=== PATIENT | male | born 1945 | race Caucasian/White ===

== ENCOUNTER 2017-01-22 11:06 | Inpatient (IN) | payer OTHER ==
[~2017-01-22] VITALS: Ht 172.7 cm; Wt 97.3 kg
--- NOTE | ~2017-01-22 | CN ---
Consultation Report [facility] [address] [place] [place]. [address] NAME: MAYLIN MIRAMONTES : [birth year] STATUS : ADM Ally PAT#: [id number] AGE: 71 ADM/REG DATE : 01/22/17 MR#: [id number] REPORT SERV DATE: 01/23/17 DICTATED BY: MARY CENTENO DATE: 01/23/17 REPORT STATUS : Draft TRANSCRIBED BY: MODL DATE: 01/23/17 GI CONSULTATION DATE OF CONSULTATION: 01/23/2017 REASON FOR CONSULTATION: Evaluation and management of lower GI bleeding. HISTORY OF PRESENT ILLNESS: Mr. Miramontes is a pleasant 71-year-old male patient, whom we have been asked to see on GI unattached call to evaluate for lower GI bleeding. The patient tells me that he has been having maroon to burgundy colored blood per rectum for approximately two weeks. He states that over the last few days, it has picked up in amount. He states that he had an isolated incident of dizziness, but no syncope. He has had no chest pain. No shortness of breath. He denies any associated abdominal pain. He has not seen any black stools. He denies nausea, vomiting, or melena. He states that he has had increased gas and distention over the last few days. He denies ever having a colonoscopy. He has no family history of colon cancer or colon polyps. He does not take any routine NSAID medications other than a daily baby aspirin. The patient was admitted to the Hospitalist Service, and he did receive GoLYTELY bowel prep overnight. I did discuss with Dr. Grissom, ER physician yesterday via telephone; however, at that point in time, Dr. Grissom was unsure if the patient would agree for admission. I have discussed with the patient and his the risks, the benefits, alternatives, complications of colonoscopy to include, but not limited to risk of bleeding, perforation, infection, reaction to medication, as well as cardiac and pulmonary side effects. He is agreeable to proceed. His main question to me is "cannot be discharged after the colonoscopy." I did discuss with him that it would depend upon findings of colonoscopy and treatment of any findings. PAST MEDICAL HISTORY: Positive for obesity and hypertension. PAST SURGICAL HISTORY: He denies any surgeries stating he has never had anesthesia. FAMILY HISTORY: Noncontributory from a GI standpoint. SOCIAL HISTORY: He is . He lives independently. Denies any alcohol, tobacco, or illicits. ALLERGIES: NO KNOWN ALLERGIES. HOME MEDICATIONS: Aspirin, Proventil, Bystolic, saw palmetto, garlic, and vitamin B12. REVIEW OF SYSTEMS: A 10-point review of systems has been obtained. Pertinent positives are addressed in the history of present illness. PHYSICAL EXAMINATION: Consultation Report [address] [place]. [address] NAME: MAYLIN MIRAMONTES : 43 STATUS : ADM Ally PAT#: [id number] AGE: 71 ADM/REG DATE : 01/22/17 MR#: [id number] REPORT SERV DATE: 01/23/17 DICTATED BY: MARY CENTENO DATE: 01/23/17 REPORT STATUS : Draft TRANSCRIBED BY: JONNY DATE: 01/23/17 VITAL SIGNS: Temperature is 98.3, pulse 70, respirations 16, and blood pressure 120/57. NEUROLOGIC: Reveals an alert male, resting in bed. No focal deficits. GENERAL: Cooperative in no apparent distress. Awake, alert, and oriented x3. HEAD, EARS, EYES, NOSE, AND THROAT: Anicteric. Pupils are equal, round, and reactive to light and accommodation. Normocephalic and atraumatic. NECK: Supple. No JVD. No palpable nodes. LUNGS: Clear anteriorly. Normal respiratory effort exhibited. Equal expansion. CARDIOVASCULAR SYSTEM: Regular rate and rhythm. ABDOMEN: Soft, obese, nontender, and nondistended. No rebound or guarding elicited on exam. No organomegaly appreciated. EXTREMITIES: No edema. Normal distal pulses. SKIN: Warm, dry, and intact. PERTINENT LABORATORY DATA: Sodium 145, potassium 3.9, BUN is 9, and creatinine 0.97. White blood cell count 6.7, hemoglobin 9.4, and hematocrit 28.8. Admission hemoglobin 11.1, with a hematocrit of 34.4. Albumin is 3.4, total bilirubin 0.5, alkaline phosphatase 54, ALT 21, and AST 19. No imaging was obtained. ASSESSMENT: 1. Lower gastrointestinal bleed/painless, question if this is diverticular bleed. Must rule out neoplasm as the patient has never had a colonoscopy versus hemorrhoidal. 2. Anemia of acute blood loss. Stable at present requiring no transfusion. 3. History of hypertension, on medication. PLAN: The patient has been prepped and will undergo colonoscopy today with further recommendations following endoscopy. MICHELET/JONNY Cinebar GIORGIO Rhodes / [id number] CC: MD Oskar Cerda M.D.
--- NOTE | ~2017-01-22 | EGD ---
EGD REPORT [facility] [address] [place]. [address] NAME: MAYLIN MIRAMONTES : 43 STATUS : ADM Ally PAT#: [id number] AGE: 71 ADM/REG DATE : 01/22/17 MR#: [id number] REPORT SERV DATE: 01/23/17 DICTATED BY: LEON NAJERA DATE: 01/23/17 REPORT STATUS : Draft [facility]ANSCRIBED [facility]: [facility] DATE: 01/23/17 Endoscopy Center Patient Name: Maylin Miramontes Date of : 1945 Attending MD: LEON NAJERA MD Procedure Date No Time: 01/23/2017 Procedure: Colonoscopy Indications: Rectal bleeding Referring MD: MK SHORT Medicines: Monitored Anesthesia Care Complications: No immediate complications. Estimated blood loss: Minimal. Procedure: Pre-Anesthesia Assessment: - ASA Grade Assessment: II - A patient with mild systemic disease. After I obtained informed consent, the scope was passed under direct vision. Throughout the procedure, the patient's blood pressure, pulse, and oxygen saturations were monitored continuously. The CF [id number] was introduced through the anus and advanced to the cecum, identified by appendiceal orifice and ileocecal valve. The colonoscopy was performed without difficulty. The patient tolerated the procedure well. The quality of the bowel preparation was good. Findings: The perianal and digital rectal examinations were normal. Pertinent negatives include no palpable rectal lesions. A frond-like/villous, ulcerated non-obstructing large mass was found in the sigmoid colon and at 20 cm proximal to the anus. The mass was non-circumferential. The mass measured four cm in length. Oozing was present. Biopsies were taken with a cold forceps for histology. Area was successfully injected with 5 mL Spot (carbon black) for tattooing. Estimated blood loss was minimal. A multi-lobulated polyp was found in the ascending colon. The polyp was 15 mm in size. The polyp was removed with a saline injection-lift technique using a hot snare. Resection and retrieval were complete. Estimated blood loss was minimal. The exam was otherwise without abnormality on direct and retroflexion views. Impression: - Likely malignant tumor in the sigmoid colon and at 20 cm proximal to the anus. Biopsied. Injected/Tattooed. - One 15 mm polyp in the ascending colon. Resected and retrieved. EGD REPORT [place] [id number] [facility] [place]. [address] NAME: MAYLIN MIRAMONTES : [birth year] STATUS : ADM Ally PAT#: [id number] AGE: 71 ADM/REG DATE : 01/22/17 MR#: [id number] REPORT SERV DATE: 01/23/17 DICTATED BY: LEON NAJERA DATE: 01/23/17 REPORT STATUS : Draft TRANSCRIBED BY: [facility] DATE: 01/23/17 - The examination was otherwise normal on direct and retroflexion views. Recommendation: - Return patient to [facility] for ongoing care. - Perform a CT scan (computed tomography) of chest with contrast, abdomen with contrast and pelvis with contrast at the next available appointment. - Check CEA at the next available appointment. - Refer to a surgeon at the next available appointment. Procedure Code(s): --- Professional --- 94705, Colonoscopy, flexible, proximal to splenic flexure; with removal of tumor(s), polyp(s), or other lesion(s) by snare technique 35535, 59, Colonoscopy, flexible, proximal to splenic flexure; with biopsy, single or multiple 52955, Colonoscopy, flexible, proximal to splenic flexure; with directed submucosal injection(s), any substance Diagnosis Code(s): --- Professional --- D49.0, Neoplasm of unspecified behavior of digestive system D12.2, Benign neoplasm of ascending colon K62.5, Hemorrhage of anus and rectum CPT copyright 2013 [employer]. All rights reserved. The codes documented in this report are preliminary and upon land planner review may be revised to meet current compliance requirements. Leon Najera MD LEON NAJERA MD 01/23/2017 10:42 AM This report has been signed electronically. Number of Addenda: 0 Note Initiated On: 01/23/2017 9:47 AM Scope Withdrawal Time 0 hours 33 minutes 40 seconds
--- NOTE | ~2017-01-22 | HP ---
History And Physical [place] [address] [facility] [place]. [address] NAME: MAYLIN JASSO : 43 STATUS : ADM Ally PAT#: [id number] AGE: 71 ADM/REG DATE : 01/22/17 MR#: [id number] REPORT SERV DATE: 01/22/17 DICTATED BY: CONNIE HENSLEY DATE: 01/22/17 REPORT STATUS : Draft TRANSCRIBED BY: MODL DATE: 01/22/17 DATE OF ADMISSION: 01/22/2017 HISTORY OF PRESENT ILLNESS: The patient is very pleasant 71-year-old male, who presented to [facility] with a complaint of burgundy-colored blood coming out of his rectum for approximately two weeks with each bowel movement. The patient reported that it started when he lifted something heavy at work. The patient denies any chest pain. No shortness of breath. No abdominal pain. No nausea. No vomiting. No dizziness. No headache. No fever. The patient does not use any nonsteroidal anti-inflammatories. He did not have colonoscopy before. PAST MEDICAL HISTORY: Only known only for hypertension, followed by Dr. Paez. He also said that he recently had an echocardiogram, which was done by Dr. Paez. He says that the echo showed that he may have a valve problem, but he cannot recall what type of valve. SURGICAL HISTORY: No history of any surgeries. ALLERGIES: NO KNOWN DRUG ALLERGIES. FAMILY HISTORY: Mother had diabetes. Father had emphysema. HOME MEDICATIONS: Include aspirin 81 mg a day, lisinopril 20 mg a day, Bystolic 10 mg daily, saw palmetto 1 capsule daily, garlic one daily, vitamin B12 one tablet p.o. daily, pharmacy will find out the dose. REVIEW OF SYSTEMS: A 14-point review of systems was done and negative except what is stated in the history of present illness. PHYSICAL EXAMINATION: GENERAL: A well-nourished and well-developed male, not in acute distress. Resting quietly. VITAL SIGNS: Blood pressure was 190/80 and then also was 210/70 in the emergency room, temperature 98, heart rate 81, respiratory rate 16, and oxygen saturation 97% on room air. HEENT: Head is atraumatic, normocephalic. Conjunctivae are clear. Pupils are equal and reactive to light and accommodation. Extraocular muscles are intact. NECK: Supple. Trachea is midline. No supraclavicular or cervical lymphadenopathy. LUNGS: Clear to auscultation bilaterally. Normal respiratory effort. CARDIOVASCULAR: Regular rate and rhythm and positive systolic ejection murmur. Point of maximal impulse not displaced. ABDOMEN: Soft, nontender, nondistended. Positive normoactive bowel sounds. EXTREMITIES: No clubbing, cyanosis, or edema. SKIN: Normal color and turgor. PSYCHIATRIC: Normal mood, slightly anxious affect. NEUROLOGIC: Awake, alert, oriented in time, place, and person. Muscle strength is 5/5 bilaterally on upper and lower extremities. Deep tendon reflexes 2/4 bilaterally on upper and lower extremities. History And Physical [address] [address] NAME: MAYLIN JASSO : 43 STATUS : ADM Ally PAT#: [id number] AGE: 71 ADM/REG DATE : 01/22/17 MR#: [id number] REPORT SERV DATE: 01/22/17 DICTATED BY: CONNIE HENSLEY DATE: 01/22/17 REPORT STATUS : Draft TRANSCRIBED BY: JONNY DATE: 01/22/17 LABORATORY RESULTS: White count 7.2, hemoglobin 11.1, hematocrit 34.4, platelet count 333. PT 14.5, INR 1.1. Sodium 143, potassium 4.1, chloride 109, carbon dioxide 28, BUN 13, creatinine 1.02, blood sugar 134. IMAGING: EKG showed sinus rhythm with a first-degree AV block, ST-T wave abnormality, consider anterior ischemia, ventricular rate of 70. ASSESSMENT AND PLAN: This is very pleasant 71-year-old male with a past medical history of hypertension, presented with, 1. Lower gastrointestinal bleeding approximately two-week duration. 2. Hypertensive urgency. 3. Regarding his lower gastrointestinal bleeding, the patient is stable. His blood pressure is elevated, it is not low. We are going to check his hemoglobin and hematocrit every six hours, and if the hemoglobin will drop by 1 unit, we will give him blood transfusion as well as we will start the patient on gentle IV fluid hydration. Dr. Grissom, emergency room physician, contacted [place], nurse practitioner of Dr. Gibson, jewel oliving machine operator mortgage protection sales. She recommended the patient to be on clear liquids, n.p.o. after midnight, and give him also GoLYTELY for preparation for colonoscopy. 4. If the patient's hemoglobin will drop by 1 unit, he will receive blood transfusion. 5. Hypertensive urgency, blood pressure is elevated. The patient said that he has white coat hypertension. We will continue his home blood pressure medications as well as I will start the patient on intravenous hydralazine as needed for systolic blood pressure 160 and above. 6. Regarding the patient's systolic ejection murmur, the patient said that he had echo recently. We will put a request for Dr. Paez to send us his echocardiogram. The patient does not have any chest pain. We will check just his serial troponins. 7. We will put him on electrolyte protocol and my partner will see this patient starting tomorrow morning. I will also check his hemoglobin A1c. MG/MODL Connie Hensley M.D. / [id number] CC: Adri Guadalupe M.D.
--- NOTE | ~2017-01-22 | PREOPHP ---
PreOp History and Physical [address] [address] NAME: MAYLIN JASSO : 43 STATUS : ADM Ally PAT#: [id number] AGE: 71 ADM/REG DATE : 01/22/17 MR#: [id number] REPORT SERV DATE: 01/24/17 DICTATED BY: ALANNA SMILEY III DATE: 01/24/17 REPORT STATUS : Draft TRANSCRIBED BY: MODL DATE: 01/24/17 HISTORY OF PRESENT ILLNESS: This 71-year-old male was admitted to the hospital for sigmoid colectomy for mass in the sigmoid colon. The patient was recently admitted to the hospital emergently with evidence for GI bleeding. He underwent a colonoscopy, was found to have a mass at 20 cm from the anus, suspicious for malignancy, biopsy pending. The patient comes now for sigmoid colectomy. Regarding this mass which is suspected to be malignant at the time of dictation. His workup shows no evidence for metastatic disease. PAST MEDICAL HISTORY: 1. Hypertension. 2. Obesity. ALLERGIES: NONE. MEDICATIONS: At home include aspirin, Prinivil, and Bystolic. SOCIAL HISTORY: The patient is and retired. He lives locally. No history of tobacco or alcohol use. FAMILY HISTORY: Unremarkable. REVIEW OF SYSTEMS: The patient's 14-point review of systems is otherwise unremarkable. PHYSICAL EXAMINATION: GENERAL: He is a male, in no acute distress. He is obese. He is alert and oriented x3. VITAL SIGNS: Blood pressure 169/90, pulse 59, temperature 97.9. HEENT: Unremarkable. NEURO: Cranial nerves II through XII were normal. LUNGS: Clear. CARDIAC: Normal. ABDOMEN: Soft, nontender. EXTREMITIES: Normal. LABORATORY DATA: Colonoscopy shows a mass at 20 cm with biopsy pending, was suspicious for malignancy. CT scan of the thorax, abdomen, pelvis shows no evidence for metastatic disease. ASSESSMENT: 1. A 71-year-old male with mass of the sigmoid colon, too large to be removed endoscopically, probable malignancy, associated with GI bleeding. 2. Hypertension. 3. Obesity. PLAN: The patient comes to the operating room now for sigmoid colectomy. This procedure, PreOp History and Physical [address] [address] NAME: MAYLIN JASSO : 43 STATUS : ADM Ally PAT#: [id number] AGE: 71 ADM/REG DATE : 01/22/17 MR#: [id number] REPORT SERV DATE: 01/24/17 DICTATED BY: ALANNA SMILEY III DATE: 01/24/17 REPORT STATUS : Draft TRANSCRIBED BY: MODStephan DATE: 01/24/17 the risks, benefits, and alternatives, including not limited to the risk for bleeding, infection, enterotomy, injury to abdominal structure, postop small bowel obstruction, ileus, incisional hernia, dehiscence, anastomotic leak, requiring reoperation with colostomy, ureteral injury, and unforeseen complications including deep venous thrombosis, pulmonary embolus, myocardial infarction, stroke, pneumonia, and , have been explained to the patient prior to surgery. The expected length of recovery has been explained. Questions have been answered. He understands the risks and agrees to surgery as planned. RHJ/JONNY Alanna Smiley III, M.D. / [id number] CC: MD HAN Cerda,MK Christopher
--- NOTE | ~2017-01-22 | CN ---
Consultation Report [address] [place]. [address] NAME: MAYLIN JASSO : 43 STATUS : ADM Ally PAT#: [id number] AGE: 71 ADM/REG DATE : 01/22/17 MR#: [id number] REPORT SERV DATE: 01/24/17 DICTATED BY: ALANNA SMILEY III DATE: 01/24/17 REPORT STATUS : Draft TRANSCRIBED BY: MODL DATE: 01/24/17 DATE OF CONSULTATION: 01/24/2017 ATTENDING PHYSICIAN: Dr. Leon Castillo. REASON FOR CONSULT: 1. Sigmoid colon mass. 2. Recommendation regarding surgical management. 3. Gastrointestinal bleeding. HISTORY OF PRESENT ILLNESS: We are asked to see this 71-year-old male, hospitalized today for the above reasons. The patient is admitted to the hospital on 01/22/2017. He states he has had intermittent episodes of blood per rectum for approximately two weeks. This occurred with each bowel movement. The patient has had no evidence for further bleeding after admission. He has had no transfusion requirements. The patient denies any abdominal pain. He underwent a colonoscopy yesterday. He is found to have a mass at 20 cm from the anus, suspicious for malignancy, with biopsy pending. The patient states again for the last 2-3 weeks, he has had intermittent "burgundy" blood noticed with bowel movements. He has had no bright red blood per rectum. No nausea or vomiting. No fever or chills. No weight loss. No constipation. PAST MEDICAL HISTORY: 1. Obesity. 2. Hypertension. ALLERGIES: NONE. MEDICATIONS: Prinivil, Bystolic. PAST SURGICAL HISTORY: None. SOCIAL HISTORY: The patient is and lives locally. No history of tobacco or alcohol use. FAMILY HISTORY: Unremarkable. REVIEW OF SYSTEMS: The patient's 14-point review of systems is otherwise unremarkable. PHYSICAL EXAMINATION: GENERAL: This is a large, obese male, in no acute distress. He is alert and oriented x3. VITAL SIGNS: Blood pressure 169/98, pulse 59, temperature 97.9. HEENT: Unremarkable. Cranial nerves II through XII are unremarkable. LUNGS: Clear. Consultation Report [place] [id number] [facility] [place]. [address] NAME: MAYLIN JASSO : 43 STATUS : ADM Ally PAT#: [id number] AGE: 71 ADM/REG DATE : 01/22/17 MR#: [id number] REPORT SERV DATE: 01/24/17 DICTATED BY: ALANNA SMILEY III DATE: 01/24/17 REPORT STATUS : Draft TRANSCRIBED BY: JONNY DATE: 01/24/17 CARDIAC: Normal. ABDOMEN: Soft, nontender. EXTREMITIES: Normal. LABORATORY: Sigmoidoscopy shows a mass at 20 cm of the sigmoid colon, suspicious for malignancy. Biopsies pending. CT scan of the abdomen, pelvis, and chest shows no evidence for metastatic disease. Hematocrit is 30. Liver enzymes are normal. ASSESSMENT: A 71-year-old male with: 1. Mass to the sigmoid colon, suspicious for malignancy, with biopsy pending and no evidence for metastatic disease. 2. Hypertension. 3. Obesity. 4. Gastrointestinal bleeding related to mass to the sigmoid colon. PLAN: I have recommended sigmoid colectomy. The patient would like to go home prior to surgery. I think this is satisfactory as he has not had any significant bleeding since admission. He will be discharged today if okay with the hospitalist. We will arrange for surgery for next week, which will be a sigmoid colectomy. This procedure, the risks, benefits, and alternatives, including but not limited to the risk for bleeding, infection, enterotomy, injury to any abdominal structure, postop small bowel obstruction, ileus, incisional hernia, dehiscence, anastomotic leak, requiring reoperation with colostomy, ureteral injury, and unforeseen complications including deep venous thrombosis, pulmonary embolus, myocardial infarction, stroke, pneumonia, and , have been fully and completely explained to the patient and his family prior to surgery. The fact that this is a major operation with risk for major morbidity and mortality has been explained. The expected length of recovery has been explained. The patient's questions have been answered. He understands the risks and agrees to surgery as planned. RHRadha/JONNY Alanna Smiley III, M.D. / [id number] CC: Adri Guadalupe M.D.
--- NOTE | ~2017-01-22 | DS ---
Discharge Summary [place] [address] [facility] [place]. [address] NAME: MAYLIN JASSO : 43 STATUS : DIS IN PAT#: [id number] AGE: 71 ADM/REG DATE : 01/22/17 MR#: [id number] REPORT SERV DATE: 01/24/17 DICTATED BY: MAURICIO WILLIAMSON DATE: 01/24/17 REPORT STATUS : Draft TRANSCRIBED BY: MODL DATE: 01/24/17 ADMISSION DATE: 01/22/2017 DISCHARGE DATE: 01/24/2017 DISCHARGE DIAGNOSES: 1. Rectal mass, likely malignant. 2. Lower gastrointestinal bleed. 3. Hypertension. 4. Acute blood loss anemia. CONSULTANTS: 1. GI, Leon Castillo MD. 2. General Surgery, Zak Knox M.D. PROCEDURES: Colonoscopy performed on 01/22/2017 that revealed a rectal mass. HOSPITAL COURSE: This is a 71-year-old gentleman who was admitted to the hospital with initial diagnosis of lower GI bleed. For details, please refer to excellent H and P dictated by Dr. Becca Horton. In summary, the patient was admitted and underwent a colonoscopy. The colonoscopy revealed a malignant mass about 20 cm from the anus. The patient was thus seen by General Surgery and also had a CT of the abdomen and pelvis performed. CT of the abdomen and pelvis did not actually reveal the mass lesion and it did not reveal any lesions concerning for possible metastatic disease. At that point in time, General Surgery decided to perform likely a sigmoid colectomy as an outpatient and he was cleared for discharge with outpatient followup plans. The patient is now being discharged home with close outpatient followup plans. More specifically, the patient will have a scheduled sigmoid colectomy next week, . DISPOSITION: Home. DISCHARGE MEDICATIONS: No changes. FOLLOWUP: Please follow with Dr. Knox as instructed. Total of 25 minutes spent in coordinating this patient's discharge today. CHRISTOPH/JONNY Mauricio Williamson MD / [id number] CC: Discharge Summary [place] [address] [place] [address] NAME: MAYLIN JASSO : 43 STATUS : DIS IN PAT#: [id number] AGE: 71 ADM/REG DATE : 01/22/17 MR#: [id number] REPORT SERV DATE: 01/24/17 DICTATED BY: MAURICIO WILLIAMSON DATE: 01/24/17 REPORT STATUS : Draft TRANSCRIBED BY: MODL DATE: 01/24/17 MD Oskar Cerda M.D.
[2017-01-22 12:24] LABS: BASOPHILS 0.1 %; BASOPHILS ABSOLUTE 0.01 10/3/uL (0.0-0.16); EOSINOPHILS 0.4 %; EOSINOPHILS ABSOLUTE 0.03 10/3/uL (0.0-0.53); ER CBC TAT 0 Hrs 05 Mins; HEMATOCRIT 34.4 % (40.0-51.0); HEMOGLOBIN 11.1 g/dL (13.6-17.8); IMMATURE GRANULOCYTES 1.7 %; IMMATURE GRANULOCYTES ABSOLUTE 0.12 10/3/uL (0.0-0.11); LYMPHOCYTES 26.6 %; LYMPHOCYTES ABSOLUTE 1.92 10/3/uL (0.67-4.30); MANUAL DIFF NO %; MEAN CORPUS HGB CONC 32.3 g/dL (32.0-36.0); MEAN CORPUSCULAR HEMOGLOB 29.7 pg (26.0-34.0); MONOCYTES 7.1 %; MONOCYTES ABSOLUTE 0.51 10/3/uL (0.21-1.20); NEUTROPHILS 64.1 %; NEUTROPHILS ABSOLUTE 4.63 10/3/uL (2.02-8.40); PLATELET COUNT 333 10/3/uL (150-400); RBC DISTRIBUTION WIDTH 13.1 % (12.0-16.0); RED CELL COUNT 3.74 10/6/uL (4.7-6.1); WHITE BLOOD CELLS 7.2 10/3/uL (4.5-10.5)
[2017-01-22 12:30] LABS: INTERNATIONAL NORMAL RATI 1.1 UNITS (-); PARTIAL THROMBO TIME 27.7 SEC (22.5-37.2); PROTIME (NOT ORD) 14.5 SEC (12.0-14.5)
[2017-01-22 12:42] LABS: A/G RATIO 0.8 (0.7-1.9); ALBUMIN 3.4 G/DL (3.5-5.0); ALKALINE PHOSPHATASE 54 U/L (45-117); BUN (BLOOD UREA NITROGEN) 13 MG/DL (6-23); CALCIUM, SERUM 8.8 MG/DL (8.5-10.4); CHLORIDE, SERUM 109 MMOL/L (96-112); CO2 (CARBON DIOXIDE) 28 MMOL/L (24-34); CREATININE 1.02 MG/DL (0.70-1.30); GFR AFRICAN AMERICAN 85 ML/MIN (>=60); GFR NON AFRICAN AMERICAN 73 ML/MIN (>=60); GLOBULIN 4.2 G/DL (2.5-4.1); GLUCOSE, SERUM 134 MG/DL (60-99); POTASSIUM, SERUM 4.1 MMOL/L (3.5-5.3); SGOT(AST) 19 U/L (5-40); SGPT(ALT) 21 U/L (5-65); SODIUM, SERUM 143 MMOL/L (135-148); TOTAL BILIRUBIN 0.5 MG/DL (0-1.2); TOTAL PROTEIN 7.6 G/DL (6.0-8.5)
[2017-01-22] MEDS ORDERED: PRIN20 PO (15:20)
[2017-01-22] MEDS ORDERED: BYSTOLIC10 MG PO (15:20)
[2017-01-22] MEDS ORDERED: SAW PALMETT2 PO (15:21)
[2017-01-22] MEDS ORDERED: ASAB PO (15:21)
[2017-01-22] MEDS ORDERED: GARLIC PO (15:21)
[2017-01-22] MEDS ORDERED: CYANOCOBALAMIN PO (15:22)
[2017-01-22 18:36] LABS: TROPONIN I <0.02 NG/ML (<0.05)
[2017-01-22 20:58] LABS: HEMATOCRIT 31.6 % (40.0-51.0); HEMOGLOBIN 10.2 g/dL (13.6-17.8)
[2017-01-23 05:28] LABS: BASOPHILS 0.2 %; BASOPHILS ABSOLUTE 0.01 10/3/uL (0.0-0.16); EOSINOPHILS 0.8 %; EOSINOPHILS ABSOLUTE 0.05 10/3/uL (0.0-0.53); HEMATOCRIT 28.8 % (40.0-51.0); HEMOGLOBIN 9.4 g/dL (13.6-17.8); IMMATURE GRANULOCYTES 1.8 %; IMMATURE GRANULOCYTES ABSOLUTE 0.12 10/3/uL (0.0-0.11); LYMPHOCYTES 36.8 %; LYMPHOCYTES ABSOLUTE 2.45 10/3/uL (0.67-4.30); MEAN CORPUS HGB CONC 32.6 g/dL (32.0-36.0); MEAN CORPUSCULAR HEMOGLOB 30.4 pg (26.0-34.0); MEAN CORPUSCULAR VOLUME 93.2 fL (80-100); MEAN PLATELET VOLUME 9.2 fL (9.2-13.0); MONOCYTES 8.9 %; MONOCYTES ABSOLUTE 0.59 10/3/uL (0.21-1.20); NEUTROPHILS 51.5 %; NEUTROPHILS ABSOLUTE 3.43 10/3/uL (2.02-8.40); PLATELET COUNT 293 10/3/uL (150-400); RBC DISTRIBUTION WIDTH 13.2 % (12.0-16.0); RED CELL COUNT 3.09 10/6/uL (4.7-6.1); WHITE BLOOD CELLS 6.7 10/3/uL (4.5-10.5)
[2017-01-23 05:34] LABS: MANUAL DIFF NO %
[2017-01-23 05:36] LABS: CALCIUM, SERUM 8.1 MG/DL (8.5-10.4); CHLORIDE, SERUM 109 MMOL/L (96-112); CO2 (CARBON DIOXIDE) 27 MMOL/L (24-34); CREATININE 0.97 MG/DL (0.70-1.30); GFR AFRICAN AMERICAN 90 ML/MIN (>=60); GFR NON AFRICAN AMERICAN 78 ML/MIN (>=60); POTASSIUM, SERUM 3.9 MMOL/L (3.5-5.3); SODIUM, SERUM 145 MMOL/L (135-148)
[2017-01-23 05:37] LABS: BUN (BLOOD UREA NITROGEN) 9 MG/DL (6-23); GLUCOSE, SERUM 91 MG/DL (60-99)
[2017-01-23 13:44] LABS: HEMOGLOBIN 9.8 g/dL (13.6-17.8)
[2017-01-23 20:55] LABS: HEMATOCRIT 30.8 % (40.0-51.0)
[2017-01-24 06:56] LABS: HEMATOCRIT 29.1 % (40.0-51.0); HEMOGLOBIN 9.5 g/dL (13.6-17.8)
[2017-01-24] MEDS ORDERED: PROTONIX PO (12:12)
[2017-01-24 12:13] LABS: HEMATOCRIT 30.3 % (40.0-51.0); HEMOGLOBIN 9.8 g/dL (13.6-17.8)
== END 2017-01-24 15:07 | disposition home or self-care (01) | DRG 375 ==
LOC: ER 11:06 → 6NO 15:35 → ENPENDDIS 15:35 → 6NO 01-24 15:07
PROVIDERS: Hospitalist; Internal Medicine; Internal Medicine Gastroenterology
PROC: 0DBN8ZX Excision of Sigmoid Colon, Via Natural or Artificial Opening Endoscopic, Diagnostic (ICD-10-PCS; principal; 2017-01-23 09:55)
PROC: 0DBK8ZX Excision of Ascending Colon, Via Natural or Artificial Opening Endoscopic, Diagnostic (ICD-10-PCS; 2017-01-23 09:55)
DX: C19 Malignant neoplasm of rectosigmoid junction (principal); K92.2 Gastrointestinal hemorrhage, unspecified; D62 Acute posthemorrhagic anemia; I16.0 Hypertensive urgency; I10 Essential (primary) hypertension; D12.2 Benign neoplasm of ascending colon; I44.0 Atrioventricular block, first degree; E66.9 Obesity, unspecified; Z79.82 Long term (current) use of aspirin; Z68.32 Body mass index [BMI] 32.0-32.9, adult; Z83.3 Family history of diabetes mellitus
CPT/HCPCS: 36415; 71250; 74176; 80048; 80053; 82378; 83036; 83735; 84484; 85014; 85018; 85025; 85610; 85730; 86850; 86900; 86901; 88305; 90670; 93005; 99285; A9270-GY; C9113; G0009; J0360